=== PATIENT | male | born 1970 | race African-American/Black ===

== ENCOUNTER 2019-03-11 18:38 | Emergency (ER) | payer MEDICARE, MEDICAID ==
[~2019-03-11] VITALS: Ht 175.3 cm; Wt 64.0 kg
[2019-03-11 18:44] VITALS: BP 144/93
== END 2019-03-11 20:20 | disposition left against medical advice (07) ==
LOC: ER 18:38
DX: Z53.21 Procedure and treatment not carried out due to patient leaving prior to being seen by health care provider (principal); R07.9 Chest pain, unspecified
CPT/HCPCS: 93005

== ENCOUNTER 2023-10-06 12:05 | Emergency (ER) | payer MEDICARE, MEDICAID ==
[~2023-10-06] VITALS: Ht 175.3 cm; Wt 66.0 kg
[2023-10-06 12:10] VITALS: BP 140/80; TEMP 98.9; O2SAT 99
[2023-10-06 12:14] VITALS: PULSE 80; RESP 17
[2023-10-06] MEDS ORDERED: IBUP-2028 MT (14:02)
== END 2023-10-06 14:31 | disposition home or self-care (01) ==
LOC: ER 12:05
DX: M79.672 Pain in left foot (principal); Z90.49 Acquired absence of other specified parts of digestive tract
CPT/HCPCS: 73630; 99283